=== PATIENT | female | born 1965 | race Caucasian/White ===

== ENCOUNTER 2016-07-13 10:41 | Emergency (ER) | payer SELFPAY ==
[2016-07-13 10:53] VITALS: BP 122/86; PULSE 74; RESP 18; TEMP 97; O2SAT 97
--- NOTE | 2016-07-13 11:34 | DX ---
Right Hand, 3 Views, at 11:17 a.m. Clinical History: 50-year-old female with right hand pain after a fall. Comparison Study: None. Findings: Bone mineralization is preserved. There is no fracture, dislocation, periostitis, or radiop aque foreign body. The radiocarpal and intercarpal alignments are maintained. There is minor negative ulnar variance. Impression: There is no acute osseous abnormality identified.
--- NOTE | 2016-07-13 12:41 | DX ---
Sacrum and Coccyx, 3 Views History: Pain after fall. Findings: No evidence for acute fracture. There is degenerative disk disease at L5-S1. No evidence fo r sacroiliitis. Mild degenerative change is seen in the symphysis pubis. Impression: No evidence for acute fracture. Chronic findings as above.
--- NOTE | 2016-07-13 12:52 | UCPHY ---
H & P Time Seen by Provider: 07/13/16 11:18 Patient Type: New HPI/ROS: This patient fell on the ice this morning and friend's driveway complaining now of right thumb pain at the carpometacarpal joint and tailbone pain. She reports that the thumb pain is mild at baseline moderate with movement associated with swelling and ecchymosis. The tailbone pain is moderate the worse with sitting. She had 400 mg of ibuprofen prior to arrival with partial improvement and notes no other exacerbating or alleviating factors. ROS: She reports no head injury. No other back pain except for lumbar paraspinous pain. She reports paresthesias in the tailbone region but no long track symptoms or other neuro symptoms. She has no other complaints and the 5 point ROS is otherwise negative Past Medical/Surgical History: Healthy Smoking Status: Never smoked Physical Exam: Physical Exam Vital signs are normal. General: No acute distress HEENT: Atraumatic. Eyes: Pupils equal and react to light. Extraocular motions are intact. Lungs: No respiratory distress. Cardiac: Brisk capillary refill is intact throughout. Pulses are 2+ and symmetric in the affected extremity. Back: Patient has sacral and coccygeal tenderness with no significant ecchymosis obvious deformity or crepitance. She has paraspinous muscular tenderness in her thoracic and lumbar spine but no midline spine pain other than the sacral tenderness mentioned. Extremities: Atraumatic and normal except for right thumb Right thumb: Patient has mild swelling and ecchymosis at the carpal metacarpal joint. No laxity. No significant pain at the metacarpophalangeal joint or interphalangeal joint. No significant wrist tenderness including no anatomical snuffbox tenderness and no increased pain with axial loading of the thumb. Skin: No rash or pallor. Neuro: Alert and oriented x3 with no sensorimotor deficits. She maintains 5/5 strength bilateral lower extremities and normal light touch sensory exam bilateral lower extremities. Initial differential diagnosis: Thumb sprain, thumb fracture, sacral contusion versus fracture, coccygeal contusion versus fracture, low back strain, disc herniation Constitutional: Initial Vital Signs Temperature (C) 36.1 C 07/13/16 10:51 Heart Rate 74 07/13/16 10:51 Respiratory Rate 18 07/13/16 10:51 Blood Pressure 122/86 H 07/13/16 10:51 O2 Sat (%) 97 07/13/16 10:51 O2 Delivery Mode Room Air Allergies/Adverse Reactions: prochlorperazine [From Compazine] Allergy (Verified 07/13/16 10:50) prochlorperazine edisylate [From Compazine] Allergy (Verified 07/13/16 10:50) prochlorperazine maleate [From Compazine] Allergy (Verified 07/13/16 10:50) Home Medications: Medication Instructions Recorded Hydrocodone/APAP 5/325 [Lyman 1 - 2 tab PO Q4PRN PRN #20 tab 07/13/16 5/325 (*)] Methocarbamol [Robaxin 750 mg (*)] 750 - 1,500 mg PO QID PRN #30 tab 07/13/16 MDM/Departure - MDM Diagnostics: Thumb x-ray: Negative by my interpretation Sacral/coccyx x-ray: Negative for acute fracture. ED Course/Re-evaluation: I counseled the patient regarding her injuries. She is placed in a Velcro thumb spica splint. No clinical evidence of radiculopathy, cauda equina or other concerning findings. - Depart Disposition: Home, Routine, Self-Care Clinical Impression: Thumb sprain Qualifiers: Encounter type: initial encounter Sprain of finger site: unspecified site Laterality: right Qualifier Code: (S63.601A) Unspecified sprain of right thumb, initial encounter Low back strain Qualifiers: Encounter type: initial encounter Qualifier Code: (S39.012A) Strain of muscle, fascia and tendon of lower back, initial encounter Instructions: Skier's Thumb (ED), Low Back Strain (ED) Additional Instructions: Diagnoses: 1. Thumb sprain 2. Low back strain 3. Coccyx/sacral contusion Plan: Sit on inflatable donut until symptoms improve [id number] mg per 6 hours as needed for pain Methocarbamol muscle relaxant and Tylenol or Vicodin in addition as needed. No driving, alcohol work on methocarbamol or Vicodin. Splint the thumb linear active until symptoms improve. Low back stretches daily until symptoms improve Follow up with Dr. Graham-orthopedic physician for further evaluation if her symptoms are not improving over the next 10 days. Good the emergency department for any significant worsening despite treatment plan Prescriptions: Hydrocodone/APAP 5/325 [Lyman 5/325 (*)] 1 - 2 tab PO Q4PRN PRN #20 tab PRN Reason: Pain Methocarbamol [Robaxin 750 mg (*)] 750 - 1,500 mg PO QID PRN #30 tab PRN Reason: Muscle Spasms Referrals: NONE *PRIMARY CARE P,. [Primary Care Provider] - As per Instructions Abdiel Graham MD [Medical Doctor] - As per Instructions - PQRS PQRS Measurement: NA
== END 2016-07-13 13:04 | disposition home or self-care (01) ==
LOC: CED 10:41
DX: S63.601A Unspecified sprain of right thumb, initial encounter (principal); S39.012A Strain of muscle, fascia and tendon of lower back, initial encounter; W00.0XXA Fall on same level due to ice and snow, initial encounter
CPT/HCPCS: 72220-PO; 73130-PO; 99203-PO; G0463-PO; L3807